=== PATIENT | male | born 1990 | race Two or more races ===

== ENCOUNTER → 2020-04-10 | Emergency (ER) | payer OTHER ==
[~2020-04-10] VITALS: Ht 177.8 cm; Wt 86.2 kg
[~2020-04-10] MED LIST: AMOX-CLAV 500-1 EACH PO; INTESTINEX680 M2 PO
== END | disposition home or self-care (01) ==
LOC: ER 11:43
DX: S91.122A Laceration with foreign body of left great toe without damage to nail, initial encounter (principal); W22.8XXA Striking against or struck by other objects, initial encounter; Y93.89 Activity, other specified; Y92.018 Other place in single-family (private) house as the place of occurrence of the external cause; Y99.8 Other external cause status

== ENCOUNTER 2022-02-12 07:58 | Emergency (ER) | payer OTHER ==
[~2022-02-12] VITALS: Ht 177.8 cm; Wt 90.7 kg
== END 2022-02-12 09:40 | disposition home or self-care (01) ==
LOC: ER 07:58
DX: S61.212A Laceration without foreign body of right middle finger without damage to nail, initial encounter (principal); W25.XXXA Contact with sharp glass, initial encounter; Y93.9 Activity, unspecified; Y92.9 Unspecified place or not applicable